=== PATIENT | female | born 1960 | race Caucasian/White ===

== ENCOUNTER 2018-02-28 09:45 | Emergency (ER) | payer OTHER ==
[~2018-02-28] VITALS: Ht 175.3 cm; Wt 64.0 kg
[2018-02-28] MEDS ORDERED: DESV100T PO ×2 (10:15→10:31)
[2018-02-28] MEDS ORDERED: ONDA8TAB9 PO (10:15)
[2018-02-28] MEDS ORDERED: proCHLORperazine 10 MG/2 ml inj IM ONE (10:20)
[2018-02-28] MEDS ORDERED: ondansetron 4mg rapidly disintigrating tab PO ONE (10:20)
[2018-02-28] MEDS ORDERED: ONDA4TAB6 PO (10:31)
[2018-02-28 10:41] VITALS: BP 151/90
== END 2018-02-28 10:40 | disposition home or self-care (01) ==
LOC: ER 09:46
DX: R11.2 Nausea with vomiting, unspecified (principal); R53.83 Other fatigue; R42 Dizziness and giddiness; Z76.0 Encounter for issue of repeat prescription; F41.9 Anxiety disorder, unspecified; F32.9 Major depressive disorder, single episode, unspecified; Z88.2 Allergy status to sulfonamides; Z88.8 Allergy status to other drugs, medicaments and biological substances; Z79.899 Other long term (current) drug therapy
CPT/HCPCS: 96372; 99283; J0780